=== PATIENT | female | born 1955 | race American Indian/Alaskan Native ===

== ENCOUNTER 2019-09-25 17:06 | Emergency (ER) | payer SELFPAY ==
--- OUTSIDE RECORDS SUMMARY | 2019-09-25 17:08 | XMS REPORT | Clinical Summary ---
:1955 Author Organization [facility] Address [address] [place] [address] Care Team Providers Name Role Phone Asked, No Pcp Primary Care Provider Unavailable Allergies No Known Allergies Medications Not on file Active Problems Not on file Social History Tobacco Use Types Packs/Day Years Used Date Current Some Day Smoker Alcohol Use Drinks/Week oz/Week Comments No Sex Assigned at Date Recorded Not on file Job Start Date Occupation Industry Not on file Not on file Not on file Travel History Travel Start Travel End No recent travel history available. 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
--- OUTSIDE RECORDS SUMMARY | 2019-09-25 17:09 | XMS REPORT ---
:1955 Author Organization [facility] t Address [address] [place] [address] Care Team Providers Name Role Phone Asked, Pcp Primary Care Physician Unavailable Payers Payer Name Policy Type Policy Number Effective Date Expiration Date S ource Problems This patient has no known problems. Allergies, Adverse Reactions, Alerts This patient has no known allergies or adverse reactions. Social History Social Habit Start Date Stop Date Quantity Comments Source Sex Assigned At [facility] Alcohol intake 2018-03-18 2018-03-18 Current [facility] 00:00:00 00:00:00 non-drinker of alcohol (finding) Smoking Status Start Date Stop Date Source Current some day smoker 2018-03-18 00:00:00 [place] Medications This patient has no known medications. Procedures This patient has no known procedures. Plan of Care Planned Activity Planned Date Details Comments Source Future Scheduled Test [code = ] Future Scheduled Test [code = ] Future Scheduled Test [code = ] Future Scheduled Test [code = ] Future Scheduled Test [code = ] Future Scheduled Test [code = ] Future Scheduled Test [code = ] Future Scheduled Test [code = ] Future Scheduled Test [code = ] Encounters Start End Encounter Admission Attending Care Care Encounter Source Date/Time Date/Time Type Type Clinicians Facility Department ID 2019-03-05 2019-03-05 Outpatient [facility] [id number] Valentino 10:30:00 10:30:00 [facility] Lambert, HEART HEART MD PA [facility] PA PA Results This patient has no known results.
--- OUTSIDE RECORDS SUMMARY | 2019-09-25 17:09 | XMS REPORT ---
:1955 Author Organization [employer] Care Team Providers Name Role Phone Clinton Avelar Provider Role Unavailable Allergies, Adverse Reactions, Alerts Substance Reaction Event Type Aspirin Info Not Available Drug Allergy Problems Problem Type Condition Code Onset Dates Condition Statu s Assessment Type 2 diabetes mellitus without E11.9 Active complications Problem Essential (primary) hypertension I10 Active Problem Hyperlipidemia, unspecified E78.5 Active Problem Type 2 diabetes mellitus without E11.9 Active complications Assessment Essential (primary) hypertension I10 Active Assessment Hyperlipidemia, unspecified E78.5 Active Assessment Shortness of breath R06.02 Active Medications No Known Medications Vital Signs Date/Time: Mar 05, 2019 BMI 31.24 Index Weight 182 lbs Height 64 in Cardiac Monitoring Heart Rate 87 /min Blood Pressure Diastolic 80 mm Hg Blood Pressure Systolic 120 mm Hg Results No Known Results Summary Purpose [employer] Submission
--- OUTSIDE RECORDS SUMMARY | 2019-09-25 17:09 | XMS REPORT | Continuity of Care Document ---
:1955 Author Organization [employer] Care Team Providers Name Role Phone Ocision Unavailable Un available Problems Problem Status Onset Classification Date Comments Sourc e Date Reported Type 2 diabetes Active Diagnosis 03/07/2019 Julián za mellitus without Aracelis g complications Essential Active Problem 03/07/2019 Valentino (primary) Lambert hypertension Hyperlipidemia, Active Problem 03/07/2019 Julián za unspecified Lambert Shortness of Active Diagnosis 03/07/2019 Valentino breath Lambert Medications No Data Provided for This Section Allergies, Adverse Reactions, Alerts Substance Category Reaction Severity Reaction Status Date Comments S ource type Reported Aspirin Adverse Info Not Adverse Active Valentino Reaction Available Reaction 9 Lambert Immunizations No Data Provided for This Section Results No Data Provided for This Section Pathology Reports No Data Provided for This Section Diagnostic Reports No Data Provided for This Section Consultation Notes No Data Provided for This Section Discharge Summaries No Data Provided for This Section History and Physicals No Data Provided for This Section Vital Signs Vital Sign Value Date Comments Source Weight 182 03/05/2019 Valentino Lambert Height 64 03/05/2019 Valentino [place] Heart Rate 87 03/05/2019 Valentino Lambert Diastolic (mm Hg) 80 03/05/2019 Valentino Lambert Systolic (mm Hg) 120 03/05/2019 Valentino Lambert Encounters No Data Provided for This Section Procedures No Data Provided for This Section Assessment and Plan No Data Provided for This Section Plan of Care No Data Provided for This Section Social History No Data Provided for This Section Family History No Data Provided for This Section Advance Directives No Data Provided for This Section Functional Status No Data Provided for This Section
[2019-09-25] MEDS ORDERED: MORPHINE 4 MG/ML SYR ONE (17:16)
[2019-09-25] MEDS ORDERED: ONDANSETRON 4 MG/2 ML VIAL ONE ×2 (17:16→17:43)
[2019-09-25] MEDS ORDERED: NA CHLORIDE 0.9% 2,000 ML ONE (17:31)
[2019-09-25 17:32] LABS: Hematocrit 43.9 % (36.0-45.0); Lymphocytes % 40.7 % (15.3-44.8); MPV 9.2 fL (7.6-11.3); RBC Red Blood Cell Count 4.64 M/uL (3.86-4.86)
[2019-09-25 17:33] LABS: Absolute Lymphocytes (CBC) 2.7 K/uL (0.7-4.9); Basophils % 1.1 % (0-1.3)
[2019-09-25] MEDS ORDERED: HYDROMORPHONE HCL 1 MG/ML INJ ONE ×2 (17:43→19:07)
[2019-09-25 17:45] LABS: Albumin 4.3 g/dL (3.4-5.0); Bilirubin Direct 0.1 mg/dL (0-0.2); Bilirubin Total 0.6 mg/dL (0.2-1.0); Potassium 3.2 mmol/L (3.5-5.1); Protein, Total 8.2 g/dL (6.4-8.2)
--- NOTE | 2019-09-25 18:06 | RAD REPORT ---
EXAM DESCRIPTION: CT - Abdomen Pelvis Wo Contrast - 09/25/2019 5:45 pm CLINICAL HISTORY: ABD PAIN Acute onset left flank pain COMPARISON: No comparisons TECHNIQUE: Axial [address] imaging of the abdomen and pelvis was performed without IV contrast. No IV contrast was given because of allergy, abnormal renal function, patient refusal or physician re quest. Oral contrast was given. All CT scans are performed using dose optimization technique as appropriate and may include automated exposure control or mA/KV adjustment according to patient size. FINDINGS: No suspicious findings in the lung bases. The liver, spleen and pancreas show no suspicious findings on non-contrast imaging. Several small sub centimeter gallstones are present. No active gallbladder process. No biliary tree dilatation. Moderate dilatation of the pelvis and calices noted secondary to a 4-5 mm UPJ calculus. No other obst ructing or nonobstructing calculi. Distal to the stone the left ureter is decompressed. No bladder ca lculi. No significant adrenal finding. Isodense renal masses and pyelonephritis cannot be excluded i n the absence of IV contrast. The urinary bladder is without significant finding. No dilated bowel loops or bowel wall thickening. Moderate stool volume present in the colon. No appen dicitis findings. No free air, free fluid or inflammatory stranding. No hernia, mass or bulky lymphad enopathy. No suspicious bony findings. IMPRESSION: A 4-5 mm left UPJ calculus is present causing up to moderate severity dilatation of the left pelvis and calices. Full assessment is limited is the absence of IV contrast.
--- NOTE | 2019-09-25 18:52 | EDPHYS ---
Physician Documentation [facility] Name: Bing Rodríguez Age: 64 yrs Sex: Female : 1955 Arrival Date: 09/25/2019 Time: 17:07 Bed 6 Private MD: ED Physician Eileen Norman HPI: 09/24 17:38 This 64 yrs old Female presents to ER via EMS with complaints of Flank Pain. ma2 17:38 The patient complains of pain in the left mid back. Onset: The symptoms/episode ma2 began/occurred gradually, 1 hour(s) ago. Associated signs and symptoms: Pertinent positives: Pertinent negatives: dysuria, headache, hematuria, nausea. Severity of pain: At its worst the pain was moderate in the emergency department the pain is unchanged. The patient has not experienced similar symptoms in the past. Historical: - Allergies: 17:23 No Known Allergies; hb - Home Meds: 17:23 None [Active]; hb - PMHx: 17:23 None; hb - PSHx: 17:23 None; hb - Immunization history:: Adult Immunizations up to date. - Social history:: Smoking status: Patient denies any tobacco usage or history of. Patient/guardian denies using alcohol, street drugs, The patient lives with family. - Family history:: not pertinent. ROS: 17:38 Constitutional: Negative for fever, chills, and weight loss. ma2 17:38 All other systems are negative. Exam: 17:38 Constitutional: This is a well developed, well nourished patient who is awake, alert, ma2 and in no acute distress. Head/Face: Normocephalic, atraumatic. Eyes: Pupils equal round and reactive to light, extra-ocular motions intact. Lids and lashes normal. Conjunctiva and sclera are non-icteric and not injected. Cornea within normal limits. Periorbital areas with no swelling, redness, or edema. ENT: Nares patent. No nasal discharge, no septal abnormalities noted. Tympanic membranes are normal and external auditory canals are clear. Oropharynx with no redness, swelling, or masses, exudates, or evidence of obstruction, uvula midline. Mucous membranes moist. Neck: Trachea midline, no thyromegaly or masses palpated, and no cervical lymphadenopathy. Supple, full range of motion without nuchal rigidity, or vertebral point tenderness. No Meningismus. Chest/axilla: Normal chest wall appearance and motion. Nontender with no deformity. No lesions are appreciated. Cardiovascular: Regular rate and rhythm with a normal S1 and S2. No gallops, murmurs, or rubs. Normal PMI, no JVD. No pulse deficits. Respiratory: Lungs have equal breath sounds bilaterally, clear to auscultation and percussion. No rales, rhonchi or wheezes noted. No increased work of breathing, no retractions or nasal flaring. Abdomen/GI: Soft, non-tender, with normal bowel sounds. No distension or tympany. No guarding or rebound. No evidence of tenderness throughout. Back: No spinal tenderness. No costovertebral tenderness. Full range of motion. Skin: Warm, dry with normal turgor. Normal color with no rashes, no lesions, and no evidence of cellulitis. MS/ Extremity: Pulses equal, no cyanosis. Neurovascular intact. Full, normal range of motion. Neuro: Awake and alert, GCS 15, oriented to person, place, time, and situation. Cranial nerves II-XII grossly intact. Motor strength 5/5 in all extremities. Sensory grossly intact. Cerebellar exam normal. Normal gait. Vital Signs: 17:02 BP 162 / 84; Pulse 78; Resp 16; Temp 97.9; Pulse Ox 100% ; Weight 76.2 kg; Height 5 ft. hb 4 in. (162.56 cm); Pain 10/10; 18:04 BP 137 / 79; Pulse 95; Resp 16; Pulse Ox 88% on R/A; tw2 18:11 Pulse Ox 98% 2 lpm ; tw2 18:47 BP 136 / 70; Pulse 97; Resp 18; Pulse Ox 96% on 2 lpm NC; tw2 17:02 Body Mass Index 28.84 (76.20 kg, 162.56 cm) hb 18:04 pt placed on NC at 2L at this time, will continue to monitor tw2 MDM: 17:10 Patient medically screened. ma2 17:38 Differential diagnosis: nephrolithiasis, pyelonephritis, UTI, pancreatitis. ma2 18:49 Data reviewed: vital signs, nurses notes. Counseling: I had a detailed discussion with ma2 the patient and/or guardian regarding: the historical points, exam findings, and any diagnostic results supporting the discharge/admit diagnosis, the presence of at least one elevated blood pressure reading (>120/80) during this emergency department visit, the need for outpatient follow up. Response to treatment: the patient's symptoms have markedly improved after treatment. ED course: she is still in mild discomfort, i offered admission for pain control she want to go home as her daughter has MS and she needs to take care of her, has unilateral hydro, stone is 4 mm distal ureter. she will se dr. recinos . 09/24 17:08 Order name: Basic Metabolic Panel; Complete Time: 18:20 hb 09/24 17:08 Order name: CBC with Diff; Complete Time: 18:20 hb 09/24 17:08 Order name: Hepatic Function; Complete Time: 18:20 hb 09/24 17:08 Order name: Lipase; Complete Time: 18:20 hb 09/24 17:12 Order name: CT Abd/Pelvis - Without Contrast; Complete Time: 18:20 ma2 09/24 17:08 Order name: IV Saline Lock; Complete Time: 17:20 hb 09/24 17:08 Order name: Labs collected and sent; Complete Time: 17:20 hb Administered Medications: 07:16 Drug: Zofran (Ondansetron) 4 mg Route: IVP; Site: right antecubital; hb 17:42 Follow up: Response: No adverse reaction tw2 17:43 Follow up: Response: No adverse reaction hb 17:16 Drug: morphine 4 mg Route: IVP; Site: right antecubital; hb 17:25 Follow up: Response: No adverse reaction; Pain is decreased; RASS: Alert and Calm (0); tw2 pt states "its maybe a 6 but i feel it coming back", provider notified. 17:35 Follow up: Response: No change in condition; RASS: Very agitated (+3) hb 17:30 Drug: NS 0.9% 2000 ml Route: IV; Rate: 1 bolus; Site: right antecubital; tw2 17:43 Drug: Dilaudid 2 mg {Note: RASS +3.} Route: IVP; Site: right antecubital; hb 18:15 Follow up: Response: No adverse reaction; Pain is unchanged, physician notified; RASS: tw2 Drowsy (-1) 17:43 Drug: Zofran (Ondansetron) 4 mg Route: IVP; Site: right antecubital; hb 18:15 Follow up: Response: No adverse reaction tw2 19:02 Drug: Dilaudid 1 mg Route: IVP; Site: right antecubital; hb 20:01 Follow up: Response: No adverse reaction ao 19:02 Drug: Phenergan 25 mg Route: IVP; Site: right antecubital; hb 20:01 Follow up: Response: No adverse reaction ao Disposition: 09/25/19 18:51 Discharged to Home. Impression: Urinary calculus, unspecified - left UPJ 4mm. - Condition is Stable. - Discharge Instructions: Kidney Stones. - Prescriptions for Flomax 0.4 mg Oral Capsule, Sust. Release 24 hr - take 1 capsule by ORAL route once daily 1/2 hour following the same meal each day; 30 capsule. Diclofenac Sodium 75 mg Oral Tablet Sustained Release - take 1 tablet by ORAL route 2 times per day; 30 tablet. Tramadol 50 mg Oral Tablet - take 1 tablet by ORAL route every 8 hours as needed; 12 tablet. - Medication Reconciliation Form, Thank You Letter, Antibiotic Education, Prescription Opioid Use form. - Follow up: Emmanuelle Recinos MD; When: Tomorrow; Reason: Continuance of care. Signatures: Dispatcher [employer] Dimitris Bailon RN RN Maria Elena Tao RN Homa Whitman RN RN tw2 Eileen Norman MD MD ma2 Corrections: (The following items were deleted from the chart) 20:01 17:12 Urine Dipstick-Ancillary ordered. kelly ao 20:03 18:51 09/25/2019 18:51 Discharged to Home. Impression: Urinary calculus, unspecified - ao left UPJ 4mm. Condition is Stable. Prescriptions for Flomax 0.4 mg Oral Capsule, Sust. Release 24 hr - take 1 capsule by ORAL route once daily 1/2 hour following the same meal each day; 30 capsule, Diclofenac Sodium 75 mg Oral Tablet Sustained Release - take 1 tablet by ORAL route 2 times per day; 30 tablet, Tramadol 50 mg Oral Tablet - take 1 tablet by ORAL route every 8 hours as needed; 12 tablet. and Forms are Medication Reconciliation Form, Thank You Letter, Antibiotic Education, Prescription Opioid Use. Follow up: Emmanuelle Recinos; When: Tomorrow; Reason: Continuance of care. ma2
--- NOTE | 2019-09-25 18:52 | ER ---
Nurse's Notes [facility] Name: Bing Rodríguez Age: 64 yrs Sex: Female : 1955 Arrival Date: 09/25/2019 Time: 17:07 Bed 6 Private MD: Diagnosis: Urinary calculus, unspecified-left UPJ 4mm Presentation: 09/24 17:02 Chief complaint: EMS states: Sudden onset left flank pain and N/V that started approx hb 30 mins DIRECTOR APPOINTMENT. 17:02 Coronavirus screen: Proceed with normal triage. Ebola Screen: No symptoms or risks hb identified at this time. Initial Sepsis Screen: Does the patient meet any 2 criteria? No. Patient's initial sepsis screen is negative. Does the patient have a suspected source of infection? No. Patient's initial sepsis screen is negative. Risk Assessment: Do you want to hurt yourself or someone else? Patient reports no desire to harm self or others. Onset of symptoms was September 25, 2019. 17:02 Method Of Arrival: EMS: [facility] 17:02 Acuity: DEIDRA 3 hb Triage Assessment: 17:02 General: Appears in no apparent distress. uncomfortable, Behavior is cooperative, hb anxious, crying, restless. Pain: Pain currently is 10 out of 10 on a pain scale. EENT: No signs and/or symptoms were reported regarding the EENT system. Neuro: Level of Consciousness is awake, alert, obeys commands, Oriented to person, place, time, situation. Cardiovascular: Capillary refill < 3 seconds Patient's skin is warm and dry. Respiratory: Airway is patent Respiratory effort is even, unlabored, Respiratory pattern is regular, symmetrical. GI: Reports nausea, vomiting. : Reports pain in left flank(s), in lower back. Derm: Skin is pink, warm \\T\\ dry. Musculoskeletal: No signs and/or symptoms reported regarding the musculoskeletal system. Historical: - Allergies: 17:23 No Known Allergies; hb - Home Meds: 17:23 None [Active]; hb - PMHx: 17:23 None; hb - PSHx: 17:23 None; hb - Immunization history:: Adult Immunizations up to date. - Social history:: Smoking status: Patient denies any tobacco usage or history of. Patient/guardian denies using alcohol, street drugs, The patient lives with family. - Family history:: not pertinent. Screenin:26 Abuse screen: Denies threats or abuse. Denies injuries from another. Nutritional hb screening: No deficits noted. Tuberculosis screening: No symptoms or risk factors identified. Fall Risk None identified. Assessment: 17:05 General: see triage. hb 17:36 Reassessment: Pt agitated, moaning loudly, pain 10/10. Dr. Norman notified, Dilaudid hb and repeat Zofran administered in CT. 18:04 Reassessment: Patient appears in no apparent distress at this time. Patient and/or tw2 family updated on plan of care and expected duration. Pain level reassessed. Patient states symptoms have improved. 18:10 Reassessment: pt devops consultant light again, states "the pain is coming back", provider tw2 notified, no further orders at this time, pt educated as of the need to hold off on further pain medication because of her oxygenation status, verbal reassurance given. Patient states symptoms have not improved. 19:03 Reassessment: Pt reports pain 9/10, repeat Dilaudid administered as ordered. Admission hb ordered, fluids infusing at this time. 20:02 Reassessment: Dc home. Pt agree with POC and states will follow up with Dr Recinos. ao Vital Signs: 17:02 BP 162 / 84; Pulse 78; Resp 16; Temp 97.9; Pulse Ox 100% ; Weight 76.2 kg; Height 5 ft. hb 4 in. (162.56 cm); Pain 10/10; 18:04 BP 137 / 79; Pulse 95; Resp 16; Pulse Ox 88% on R/A; tw2 18:11 Pulse Ox 98% 2 lpm ; tw2 18:47 BP 136 / 70; Pulse 97; Resp 18; Pulse Ox 96% on 2 lpm NC; tw2 17:02 Body Mass Index 28.84 (76.20 kg, 162.56 cm) hb 18:04 pt placed on NC at 2L at this time, will continue to monitor tw2 ED Course: 17:07 Patient arrived in ED. hb 17:10 Eileen Norman MD is Attending Physician. ma2 17:16 Inserted saline lock: 20 gauge in right antecubital area, using aseptic technique. hb Blood collected. 17:22 Triage completed. hb 17:23 Arm band placed on. EKG completed in triage. Results shown to MD. EKG completed in hb triage. Results shown to MD. 17:23 Patient has correct armband on for positive identification. Placed in gown. Bed in low hb position. Call light in reach. Side rails up X 1. 17:29 Maria Elena Hinson, SANDRA is Primary Nurse. hb 17:45 CT Abd/Pelvis - Without Contrast In Process Unspecified. EDMS 18:51 Emmanuelle Recinos MD is Referral Physician. ma2 19:09 Awaiting: completion of IV fluids prior to discharge. tw2 19:11 Report given to SANDRA Nelson. tw2 20:02 No provider procedures requiring assistance completed. IV discontinued, intact, ao bleeding controlled, No redness/swelling at site. Pressure dressing applied. Administered Medications: 07:16 Drug: Zofran (Ondansetron) 4 mg Route: IVP; Site: right antecubital; hb 17:42 Follow up: Response: No adverse reaction tw2 17:43 Follow up: Response: No adverse reaction hb 17:16 Drug: morphine 4 mg Route: IVP; Site: right antecubital; hb 17:25 Follow up: Response: No adverse reaction; Pain is decreased; RASS: Alert and Calm (0); tw2 pt states "its maybe a 6 but i feel it coming back", provider notified. 17:35 Follow up: Response: No change in condition; RASS: Very agitated (+3) hb 17:30 Drug: NS 0.9% 2000 ml Route: IV; Rate: 1 bolus; Site: right antecubital; tw2 17:43 Drug: Dilaudid 2 mg {Note: RASS +3.} Route: IVP; Site: right antecubital; hb 18:15 Follow up: Response: No adverse reaction; Pain is unchanged, physician notified; RASS: tw2 Drowsy (-1) 17:43 Drug: Zofran (Ondansetron) 4 mg Route: IVP; Site: right antecubital; hb 18:15 Follow up: Response: No adverse reaction tw2 19:02 Drug: Dilaudid 1 mg Route: IVP; Site: right antecubital; hb 20:01 Follow up: Response: No adverse reaction ao 19:02 Drug: Phenergan 25 mg Route: IVP; Site: right antecubital; hb 20:01 Follow up: Response: No adverse reaction ao Intake: Outcome: 18:51 Discharge ordered by . kelly 20:02 Discharged to home ambulatory, via wheelchair. ao 20:02 Condition: stable 20:02 Discharge instructions given to patient, Instructed on discharge instructions, follow up and referral plans. Demonstrated understanding of instructions, follow-up care, medications, Prescriptions given X 3. 20:03 Patient left the ED. ao Signatures: Dispatcher [employer] Dimitris Bailon RN RN Maria Elena Tao RN RN Homa Subramanian RN RN tw2 Eileen Norman MD MD ma2
[2019-09-25] MEDS ORDERED: PROMETHAZINE INJ 25 MG/ML AMP ONE (19:06)
[2019-09-25 20:12] VITALS: BP 136/70; O2SAT 96
== END 2019-09-25 20:03 | disposition home or self-care (01) ==
LOC: ER 17:06
DX: N20.9 Urinary calculus, unspecified (principal)
CPT/HCPCS: 36415; 74176; 80048; 80076; 83690; 85025; 96374; 96375; 99284; J1170; J2405; J2550; J7030